=== PATIENT | female | born 1955 | race Caucasian/White ===

== ENCOUNTER → 2018-01-15 11:53 | Outpatient (CLI) | payer MEDICARE, SELFPAY ==
[2018-01-18 08:19] LABS: HPV Reflexed? NOT INDICATED
== END ==
PROVIDERS: Visit Provider Obstetrics & Gynecology
DX: Z12.4 Encounter for screening for malignant neoplasm of cervix (principal)
CPT/HCPCS: 88175; G0145

== ENCOUNTER → 2019-09-13 15:36 | Outpatient (CLI) | payer MEDICARE, SELFPAY ==
[2019-09-13 17:56] LABS: Estradiol 15.6 pg/mL
[2019-09-14 14:46] LABS: Progesterone Level 1.07 ng/mL (See Comment)
== END ==
PROVIDERS: Visit Provider Obstetrics & Gynecology
DX: N90.5 Atrophy of vulva (principal); N95.1 Menopausal and female climacteric states; L28.0 Lichen simplex chronicus
CPT/HCPCS: 36415; 82670; 84144

== ENCOUNTER → 2020-06-23 | Outpatient (CLI) | payer MEDICARE, SELFPAY ==
[2020-06-23 12:25] LABS: Estradiol 24.9 pg/mL
== END | disposition home or self-care (01) ==
LOC: WOBLAB 10:38
PROVIDERS: Visit Provider Obstetrics & Gynecology
DX: N95.1 Menopausal and female climacteric states (principal)
CPT/HCPCS: 36415; 82670; 84144

== ENCOUNTER → 2020-09-14 | Outpatient (CLI) | payer MEDICARE, SELFPAY ==
--- NOTE | 2020-09-14 | IMM_PTH ---
PATIENT: BROCK CORTES LOC: [facility] U#:[id number] AGE/SX: 64/F ROOM: RE09/14/[address]: Dr. Mar Jalloh MD : 1955 BED: DIS: 09/14/2020 SPEC #: [id number] RECD: 09/15/20 09:48 STATUS: ADELE REQ #: [id number] JULIO: 09/14/20 00:[address]: Mar Jalloh DEPT: IMMUNOHISTOCHEMISTRY RECD BY: Nory Reyes ENTERED: 09/15/20 09:48 SP TYPE: IMMUNO OTHR DR: No Primary Care Phys Tissues: Right breast, NOS Procedures: CALPONIN-1 (add) CK5-6 (add) CK8 (add) E-CAD (add) HER2 JOSE G (add) KI-67 (add) P53 (add) AL (add) IN SITU HYBRIDIZATION P40 (add) ER (initial) PHYSICIAN & INSTITUTION [address] [address] SPECIMEN INFORMATION: Tissue Source: Right breast tissue 11 o'clock, 10 cm from nipple Clinical Info: Right breast mass Specimen Number: [id number] CPT code: 21234, 79374 x6, 47338 x3, 56024 x2 METHODOLOGY: Deparaffinized sections of prefer/formalin-fixed tissue or PAP/DQ stained slides are incubated with monoclonal/polyclonal antibodies/oligonucleotide probes. Localization is made via biotin free immunoperoxidase method. Appropriate controls are performed and reacted as expected. Results on target cell population are indicated in the following table: RESULTS: ANTIBODY / CLONE RESULT E-Cad (ECH-6) positive CK8 ([id number]) positive Calponin-1 (TC846X) negative CK5-6 (D5 & 1684) negative P40 (BC28) negative P53 (DO-7) positive, 3% Ki-67 (30-9) positive, low MORPHOMETRIC ANALYSIS ER (clone 6F11) >95%, strong intensity AL (clone 16/1E2) >95%, strong intensity Her-2Neu (clone CB11) 2+ The prognostic test for HER2 is performed on formalin-fixed paraffin embedded tissue. A 3+ (positive) staining pattern is defined as intense, homogeneous, complete, circumferential membranous staining in >10% of contiguous tumor cells. A similar weak (2+) staining pattern is interpreted as equivocal. CAROL follow-up testing is recommended for all equivocal cases. Positivity/negativity for ER/AL is reported if > or < 1% of the tumor cells are immuno- reactive, respectively. The ASCO/CAP criteria is used for scoring. Reference: Journal of Clinical Oncology, 2013; 31:1813-4722 & 2010; 16:0581-8818. Duration of fixation: 9 Hrs; Sample Adequate: Yes. These assays have not been validated on decalcified tissues. Results should be interpreted with caution given the likelihood of false negativity on decalcified specimens. These tests were developed and their performance characteristics determined by [facility]. They may not have been cleared or approved by the U.S. Food and Drug Administration. The FDA has determined that such clearance or approval is not necessary. The above immunohistochemical/dualISH markers are ordered and reviewed by the Pathologist. INTERPRETATION: Right breast tissue 11 o'clock, 10 cm from nipple, biopsy: Invasive ductal carcinoma, nuclear grade 2-3. Positive for estrogen receptors (favorable prognostic indicator). Positive for progesterone receptors (favorable prognostic indicator). Equivocal for overexpression of DJO4kxz. 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 Interpretative Information: The INFORM HER2 Dual CAROL DNA Probe Cocktail assay is performed on formalin-fixed paraffin embedded tissue and determines HER2 gene status by detecting HER2 copies via silver in situ hybridization (SISH) and Chromosome 17 copies via chromogenic red in situ hybridization on tumor cells. A minimum of 20 cells representing > 10% of contiguous and homogeneous invasive tumor cells were analyzed. HER2 gene status is classified as Non-amplified (HER2/Chr17 ratio < 2.0) or Amplified (HER2/Chr17 ratio greater than or equal to 2.0). If the resulting HER2/Chr17 ratio falls within 1.8 - 2.2 (Borderline), retesting by FISH is recommended. Reference: Doreen GRISSOM, Nilsa DAY, Merle ELDRIDGE, et al: Recommendations for Human Epidermal Growth Factor Receptor 2 Testing in Breast Cancer: [place] Society of Clinical Oncology / [employer] Clinical Practice Guideline Update. J Clin Oncol 31:1627-6915, 2013. AM:jeremy 09/20/20
[2020-09-14 09:57] VITALS: BMI 47.0
--- NOTE | 2020-09-14 10:30 | BRBX_PTH ---
PATIENT: BROCK CORTES LOC: [facility] U#:[id number] AGE/SX: 64/F ROOM: RE09/14/[address]: Dr. Mar Jalloh MD : 1955 BED: DIS: 09/14/2020 SPEC #: [id number] RECD: 09/14/20 11:34 STATUS: ADELE SAUL #: [id number] JULIO: 09/14/20 10:[address]: Mar Jalloh DEPT: SURGICAL PATHOLOGY RECD BY: Desiree Francisco ENTERED: 09/14/20 12:01 SP TYPE: BREAST BX OTHR DR: No Primary Care Phys Tissues: Breast, NOS Procedures: Surgery Specimen Level IV HEADER OPERATION: Right breast biopsy PRE-OP DIAGNOSIS: Right breast mass TISSUE SUBMITTED: Right breast tissue 11 o'clock, 10 cm from nipple FIXATION TIME: 9 hours MICROSCOPIC DIAGNOSIS Right breast, 11 o'clock, 10 cm from nipple, core biopsy: Invasive ductal carcinoma, nuclear grade 3 (1.2 cm in greatest length). Ductal carcinoma in situ. See comment. JONG:jeremy 09/15/20 COMMENT Immunohistochemistry ([id number]) supports the above diagnosis. Ductal carcinoma in situ shows cribriform pattern, intermediate nuclear grade and focal single cell necrosis and comprise about 30-40% of the total tumor volume. ER/HI/Vvy6qsy studies are being performed on sections of tumor and the results from this study will be reported separately ([id number]). Case has been reviewed in consultation with Dr. Teixeira who concurs with the above diagnosis. IDC:AM MICROSCOPIC DESCRIPTION Slides are reviewed. GROSS DESCRIPTION Received in fixative is one container labeled with the patient name and designated right breast. The specimen consists of multiple elongated fragments of king soft tissue that in aggregate measure 2 x 0.2 x 0.1 cm. The entire specimen is submitted in one cassette. / JONG:jeremy 09/14/20 TC:0 CPT: 87994 ADDENDUM ADDENDUM ADDENDUM ADDENDUM ADDENDUM ADDENDUM ADDENDUM ADDENDUM ADDENDUM ADDENDUM ADDENDUM ADDENDUM ADDENDUM 11/17/2020 10:28 ADDENDUM 11/17/2020 10:28 ADDENDUM 11/17/2020 10:28 ADDENDUM 11/17/2020 10:28 ADDENDUM 11/17/2020 10:28 This addendum is added to incorporate an outside pathology consultation report. The case was examined at [facility] (#[id number]) and the following diagnosis was rendered. Breast, right, 11 o'clock, mass, core biopsy: Invasive ductal carcinoma, grade 2. Background of ductal carcinoma in situ, grade 2. ER and HI strongly positive. HER2 IHC equivocal; CAROL reported as not amplified. Please see complete above mentioned consultation report in EMR
== END | disposition home or self-care (01) ==
LOC: LABSPEC 11:47
PROVIDERS: Referring Provider Surgery; Visit Provider Surgery
DX: D05.11 Intraductal carcinoma in situ of right breast (principal)
CPT/HCPCS: 88305; 88341; 88342; 88368